=== PATIENT | male | born 1980 | race Caucasian/White ===

== ENCOUNTER → 2016-11-22 | Outpatient (REF) | payer OTHER | LOC: M LAB REF 17:05 | PROVIDERS: ATTEND Surgery | DX: Z30.2 Encounter for sterilization (principal) ==

== ENCOUNTER → 2017-01-19 | Outpatient (REF) | payer OTHER ==
[2017-01-19 09:41] LABS: IMMMOTILE SPERM CENTRIFUGED ABSENT (ABSENT); IMMOTILE SPERM ABSENT (ABSENT); MOTILE SPERM ABSENT (ABSENT); MOTILE SPERM CENTRIFUGED ABSENT (ABSENT)
== END ==
LOC: M LAB REF 09:29
PROVIDERS: ATTEND Surgery
DX: Z30.2 Encounter for sterilization (principal)

== ENCOUNTER 2023-09-20 07:19 | Day surgery (SDC) | payer OTHER ==
[~2023-09-20] VITALS: Ht 177.8 cm; Wt 98.1 kg
[~2023-09-20 07:19] MED LIST: ALLE180T33 PO; BUPR300T92 PO; BUSP10TA79 PO; CHEL100T4 PO; CYMB60CA4 PO; FAMO20TA PO; IBUP200C25 PO; LISI20TA33 PO; NS 1,000 ML IV ONE
[2023-09-20] MEDS ORDERED: propofoL 200 MG/20 ML VIAL As Ordered ONE (08:37)
[2023-09-20 08:41] VITALS: TEMP 97.8
[2023-09-20 08:55] VITALS: BP 111/68; O2SAT 98
== END 2023-09-20 08:59 | disposition home or self-care (01) ==
LOC: M OPP 07:19
PROVIDERS: ATTEND Surgery
DX: Z12.11 Encounter for screening for malignant neoplasm of colon (principal); Z80.0 Family history of malignant neoplasm of digestive organs; Z83.710 Family history of adenomatous and serrated polyps; F17.220 Nicotine dependence, chewing tobacco, uncomplicated; Z79.1 Long term (current) use of non-steroidal anti-inflammatories (NSAID); Z79.899 Other long term (current) drug therapy

== ENCOUNTER → 2025-05-06 | Outpatient (CLI) | payer OTHER ==
[~2025-05-06] MED LIST changes: +BUPR-766 PO; -BUPR300T92 PO; -NS 1,000 ML IV ONE
== END ==
LOC: M RAD 08:13
PROVIDERS: ATTEND Physician Assistant
DX: K43.9 Ventral hernia without obstruction or gangrene (principal)